=== PATIENT | male | born 1995 | race Two or more races ===

== ENCOUNTER 2021-01-28 17:12 | Emergency (ER) | payer MEDICAID ==
[~2021-01-28] VITALS: Ht 167.6 cm; Wt 82.0 kg
[2021-01-28 21:32] VITALS: BP 118/70
== END 2021-01-28 23:57 | disposition home or self-care (01) ==
LOC: ER 17:12
DX: S52.501A Unspecified fracture of the lower end of right radius, initial encounter for closed fracture (principal); V89.2XXA Person injured in unspecified motor-vehicle accident, traffic, initial encounter; Y93.89 Activity, other specified; Y92.89 Other specified places as the place of occurrence of the external cause; Y99.8 Other external cause status
CPT/HCPCS: 29125; 73110; 99283